=== PATIENT | female | born 1940 | race Caucasian/White ===

== ENCOUNTER 2017-04-25 20:18 | Inpatient (IN) ==
[2017-04-25] MEDS ORDERED: NS 1,000 ML IV ONE ×2 (20:26→22:29)
[2017-04-25] MEDS ORDERED: MORPHINE SULFATE 2 MG SYRINGE IVP ONE (20:26)
[2017-04-25] MEDS ORDERED: ONDANSETRON 4 MG/2 ML INJECTION IVP ONE (20:26)
[2017-04-25] MEDS ORDERED: ENOXAPARIN 80 MG/0.8 ML INJECTION SQ ONE (20:26)
--- NOTE | 2017-04-25 21:08 | Emergency Department Report ---
Fall HPI - General Chief Complaint: Fall Stated Complaint: Fall Time Seen by Provider: 04/25/17 20:24 Source: patient, EMS Mode of arrival: EMS Limitations: no limitations - History of Present Illness HPI Narrative: 76yo woman is presented to the ER by EMS following a fall. Pt was preparing to take a bath 3 days ago, when she fell into the tub. Pt was found by family today. EMS was called and came to evaluate pt. Pt c/o right hip pain and left shoulder pain. MD complaint: fall Onset (ago): day(s) (3) Fall from: standing Fall witnessed: no Place fall occurred: home Loss of consciousness: unsure Prolonged down time: yes Symptoms prior to fall: none Context: tripped/slipped Location of injury: back, pelvis Severity: mild Severity scale (1-10): 3 Quality: aching Associated symptoms (after fall): denies - Related Data Home Medications Medication Instructions Recorded Confirmed Gabapentin [Neurontin] 1 cap PO HS #0 10/08/10 04/25/17 Levothyroxine Tab [Synthroid] 1 tab PO DAILY #0 10/08/10 04/25/17 Tramadol HCl [Ultram] 50 mg PO PRN #0 03/17/12 04/25/17 Topiramate [Topamax] 100 mg PO BID #0 06/12/12 04/25/17 Temazepam 30 mg PO HS #0 06/21/12 04/25/17 Aspirin 325 mg PO DAILY #0 09/21/12 04/25/17 Nitroglycerin [Nitrostat] 0.4 mg SL PRN #0 09/21/12 04/25/17 Loratadine [Claritin] 10 mg PO DAILY #0 05/24/14 04/25/17 Simvastatin [Zocor] 10 mg PO HS #0 tab 05/24/14 04/25/17 Carvedilol 1 tab PO BID #60 01/22/15 04/25/17 Cyclobenzaprine HCl 1 tab PO BID PRN #0 tab 01/22/15 04/25/17 Ondansetron [Zofran Odt] 1 tab PO Q6H PRN #30 01/22/15 04/25/17 Amitriptyline [Elavil] 1 tab PO HS 04/25/17 04/25/17 Calcium Carbonate/Vitamin D3 600 mg PO DAILY 04/25/17 04/25/17 [Calcium 600 + Vit D Tablet] Cholecalciferol [Vit. D-3] 1 tab PO DAILY 04/25/17 04/25/17 Docusate Sodium [Colace] 1 cap PO DAILY 04/25/17 04/25/17 Magnesium Oxide [Magox 400] 400 mg PO DAILY 04/25/17 04/25/17 Omeprazole [Prilosec] 1 cap PO ACB 04/25/17 04/25/17 Ondansetron Odt 4 mg PO PRN PRN 04/25/17 04/25/17 Prochlorperazine Tab [Compazine] 5 mg PO Q6HR 04/25/17 04/25/17 Rivaroxaban [Xarelto] 20 mg PO WS 04/25/17 04/25/17 Allergies Allergy/AdvReac Type Severity Reaction Status Date / Time Sulfa (Sulfonamide Allergy Intermediate HIVES Verified 04/25/17 20:25 Antibiotics) lansoprazole Allergy Unknown Verified 04/25/17 20:25 metoclopramide HCl Allergy Unknown dizzy and Uncoded 04/25/17 20:25 disoriented Review of Systems All systems: reviewed and negative except as stated Musculoskeletal: Reports: as per HPI, back pain, arthralgia PFSH Patient Stated Medical History Cerebrovascular Accident Yes Cardiac Arrhythmia Yes Hypertension Yes Gastroesophageal Reflux Yes Disease Hx Incontinence Yes Depression Yes - Social History Smoking status: Never smoker Physical Exam - Limitations Limitations: no limitations - General General appearance: alert, in no apparent distress - Head Head exam: atraumatic, normocephalic, normal inspection - Eye Eye exam: Present: normal appearance, PERRL, EOMI. Absent: scleral icterus - ENT ENT exam: Present: normal exam, normal oropharynx, mucous membranes moist, normal external ear exam - Neck Neck exam: Present: normal inspection, full ROM, trachea midline. Absent: tenderness, lymphadenopathy - Chest Chest inspection: Present: normal inspection, symmetric chest wall rise. Absent : tenderness, rash - Respiratory Respiratory exam: Present: normal lung sounds bilaterally. Absent: respiratory distress, wheezes, prolonged expiratory phase - Cardiovascular Cardiovascular exam: Present: regular rate, normal rhythm, normal heart sounds, +S1, +S2. Absent: systolic murmur, diastolic murmur, +S3, +S4 - Abdominal Exam Abdominal exam: Present: soft, normal bowel sounds. Absent: distention, tenderness, guarding, rebound, psoas sign, obturator sign, Person's sign, hernia - Skin Skin exam: Present: warm, dry, intact, other (Ecchymosis over left post shoulder ). Absent: rash - Neurological Exam Neurological exam: Present: alert, oriented X3, CN II-XII intact - Psychiatric Psychiatric exam: Present: normal affect, normal mood Course - Consultations Consultation #1: Darci Telemed: Time: 23:21 Vital Signs Temperature 98.1 F 04/25/17 20:18 Pulse Rate 98 04/25/17 20:18 Respiratory Rate 20 04/25/17 20:18 Blood Pressure 138/84 04/25/17 20:18 Pulse Oximetry 97 04/25/17 20:18 Temperature 98.1 F 04/25/17 20:18 Pulse Rate 101 H 04/26/17 00:45 Respiratory Rate 18 04/26/17 00:45 Blood Pressure 150/79 H 04/26/17 00:45 Pulse Oximetry 94 04/26/17 00:45 Fall - MDM Narrative Medical decision making narrative: Pt is s/p fall and prolonged period (>48hrs) confined in a tub. She is still very weak, mildly dehydrated, and with a UTI. After discussion with pt and family, will contact hospitalist for observation admission with Social Work consult in the AM to determine whether pt can safely return to her home with outpt help or whether she will need rehab/move to assisted living. Pt voiced understanding of dx, prognosis, tx, and f/u need. - Differential Diagnosis Likely: syncope, dislocation of shoulder region, compression fracture, concussion with loss of consciousness, concussion without loss of consciousness - Medical Records Attestation: I reviewed the patient's medical records. - Lab Data Attestation: I reviewed the patient's lab results. Result diagrams: 04/25/17 21:19 04/26/17 03:41 Lab Results 04/25/17 04/25/17 04/25/17 Range/Units 21:19 21:19 22:58 WBC 11.8 H (4.5-11.0) T/MM3 RBC 4.21 (4.00-5.20) M/MM3 Hgb 13.2 (12-16) GM/DL Hct 39.6 (36-46) % MCV 94.1 (80-100) UM3 MCH 31.4 (26-34) UUG MCHC 33.3 (31-37) GM/DL RDW Std Deviation 43.0 (36.9-50.2) FL Plt Count 134 (130-400) T/MM3 MPV 11.1 (9.4-12.4) UM3 Immature Gran % (Auto) 0.3 (0.0-0.5) % Neut % (Auto) 73.7 H (33-66) % Lymph % (Auto) 15.5 L (23-45) % [place] % (Auto) 9.9 H (0-9.0) % Eos % (Auto) 0.3 (0-4) % Baso % (Auto) 0.3 (0-2) % Neut # 8.7 H (1.8-7.7) T/MM3 Lymph # 1.8 (1-4.8) T/MM3 [place] # 1.2 H (0-0.8) T/MM3 Eos # 0.0 (0-0.5) T/MM3 Baso # 0.0 (0-0.2) T/MM3 Abs Immat Gran (auto) 0.03 (0.00-0.03) T/MM3 Turbidity < 20 (0-20) Sodium 148 H (134-144) MEQ/L Potassium 3.8 (3.6-5) MEQ/L Chloride 114 H (98-107) MEQ/L Carbon Dioxide 17 L (22-30) MEQ/L Anion Gap 17 H (5-15) MEQ/L BUN 14.0 (7-17) MG/DL Creatinine 0.9 (0.7-1.2) MG/DL GFR Calculation 61 BUN/Creatinine Ratio 16 (6-26) RATIO Glucose 148 H (65-110) MG/DL Calculated Osmolality 288 H (261-280) MOSM/KG Calcium 10.1 (8.4-10.2) MG/DL Total Bilirubin 1.40 H (0.20-1.30) MG/DL Icterus Index < 2 (0-7) AST 73 H (14-36) U/L ALT 45 (9-52) U/L Alkaline Phosphatase 85 (38-126) U/L Creatine Kinase 1387 H (30-135) U/L Total Protein 8.1 (6.3-8.2) G/DL Albumin 4.6 (3.5-5.0) G/DL Globulin 3.5 (2.4-3.6) G/DL Albumin/Globulin Ratio 1.3 (1.1-2.2) RATIO Plasma Lactate 2.6 H (0.6-2.2) MMOL/L Specimen Hemolysis < 15 (0-25) Ur Collection Type Urine, clean catch Urine Color Yellow (YELLOW) Urine Clarity Cloudy Urine pH 6.0 (5.0-8.0) Ur Specific [place] 1.025 (1.015-1.025) Urine Protein 1+ A (NEGATIVE) Urine Glucose (UA) Negative (NEGATIVE) Urine Ketones 2+ A (NEGATIVE) Urine Occult Blood 3+ A (NEGATIVE) Urine Nitrate Positive A (NEGATIVE) Urine Bilirubin Negative (NEGATIVE) Urine Urobilinogen 1.0 (NORMAL) EU/DL Ur Leukocyte Esterase 1+ A (NEGATIVE) Urine RBC 10-20 H (0-3) /HPF Urine WBC 30-50 H (0-5) /HPF Urine Bacteria 4+ H (NEGATIVE) Ur Culture Indicated? Cult reflexed &setup - Radiology Data Attestation: I reviewed the patient's radiology results. Right Hip: No apparent bony pathology CXR: Mildly increased right perihilar opacities. Left shoulder: No apparent fracture or dislocation. - EKG Data EKG #1 EKG attestation: Yes: I reviewed and interpreted this EKG. EKG shows normal: sinus rhythm, axis, intervals, QRS complexes Rate: normal Interpretation: nonspecific ST-T wave changes Disposition Clinical Impression: Fall Qualifiers: Encounter type: initial encounter Qualified Code(s): W19.XXXA - Unspecified fall, initial encounter Disposition: 02 To [facility] [place] Acute Care Condition: Stable Time of Disposition: 00:00 - Seen By: physician
[2017-04-25] MEDS ORDERED: CEFTRIAXONE (ER USE ONLY) 1 GM in NS 100 ML IV ONE (23:19)
[2017-04-26] MEDS ORDERED: NITROGLYCERIN 0.4 MG SUBLINGUAL TABLET SL SCH (00:38)
[2017-04-26] MEDS ORDERED: ONDANSETRON ODT 4 MG TABLET SL PRN (00:38)
[2017-04-26] MEDS ORDERED: NS 1,000 ML IV SCH (00:38)
[2017-04-26] MEDS ORDERED: ONDANSETRON 4 MG/2 ML INJECTION IVP PRN (00:38)
[2017-04-26 00:43] VITALS: BMI 27.9
[2017-04-26] MEDS: SALINE FLUSH 10ml SYRINGE IVF PRN (01:04)
--- NOTE | 2017-04-26 02:17 | History & Physical Report ---
History of Present Illness Date: 04/26/17 Chief complaint: Fall, Weakness HPI: Bonita is a pleasant 76-year-old white female who states that she fell in the bathtub on Tuesday night. She does not believe she lost consciousness, she says she slipped. Unfortunately, she was unable to get herself out of the time of, and remained there until late Tuesday afternoon when her neighbor came over for a welfare check. She states that her son and [id number] came by at about the same time. She was brought by EMS to the emergency department, where her workup was remarkably benign. She did show evidence of a urinary tract infection, and her CK was approximately 1400. She was given Rocephin, IV fluids, and consideration was made for discharge to return home, however she lost her footing and fell getting up from the commode in the emergency department. She will be placed in observation status, for additional fluids, and for evaluation by physical therapy and Case management in the morning. Review of Systems - Constitutional Constitutional: Present: weakness. Absent: anorexia, chills - EENMT Eyes: Absent: change in vision - Respiratory Respiratory: Absent: cough, dyspnea - Gastrointestinal Gastrointestinal: Absent: abdominal pain, diarrhea - Musculoskeletal Musculoskeletal: Present: stiffness ( She complained of pain in her left shoulder and right hip, both were evaluated in the emergency department with no acute injury apparent) - Neurological Neurological: Present: frequent falls. Absent: abnormal gait, loss of vision [facility] Patient Stated Medical History Cerebrovascular Accident Yes Cataracts Yes: 2015 Cardiac Arrhythmia Yes Hypertension Yes Gastroesophageal Reflux Yes Disease Hx Incontinence Yes Osteoarthritis Yes Depression Yes she takes Xarelto for atrial fibrillation, paroxysmal she also endorses a history of hypothyroidism Family History: she states that her mother, father, and brother all have from complications of heart disease/ congestive heart failure - Social History Smoking status: Never smoker Medications Home Medications Medication Instructions Recorded Confirmed Type Gabapentin [Neurontin] 1 cap PO HS #0 10/08/10 04/25/17 History Levothyroxine Tab [Synthroid] 1 tab PO DAILY #0 10/08/10 04/25/17 History Tramadol HCl [Ultram] 50 mg PO PRN #0 03/17/12 04/25/17 History Topiramate [Topamax] 100 mg PO BID #0 06/12/12 04/25/17 History Temazepam 30 mg PO HS #0 10/03/12 08/07/17 History Aspirin 325 mg PO DAILY #0 09/21/12 04/25/17 History Nitroglycerin [Nitrostat] 0.4 mg SL PRN #0 09/21/12 04/25/17 History Loratadine [Claritin] 10 mg PO DAILY #0 05/24/14 04/25/17 History Simvastatin [Zocor] 10 mg PO HS #0 tab 05/24/14 04/25/17 History Carvedilol 1 tab PO BID #60 01/22/15 04/25/17 History Cyclobenzaprine HCl 1 tab PO BID PRN #0 tab 01/22/15 04/25/17 History Ondansetron [Zofran Odt] 1 tab PO Q6H PRN #30 01/22/15 04/25/17 History Amitriptyline [Elavil] 1 tab PO HS 04/25/17 04/25/17 History Calcium Carbonate/Vitamin D3 600 mg PO DAILY 04/25/17 04/25/17 History [Calcium 600 + Vit D Tablet] Cholecalciferol [Vit. D-3] 1 tab PO DAILY 04/25/17 04/25/17 History Docusate Sodium [Colace] 1 cap PO DAILY 04/25/17 04/25/17 History Magnesium Oxide [Magox 400] 400 mg PO DAILY 04/25/17 04/25/17 History Omeprazole [Prilosec] 1 cap PO ACB 04/25/17 04/25/17 History Ondansetron Odt 4 mg PO PRN PRN 04/25/17 04/25/17 History Prochlorperazine Tab [Compazine] 5 mg PO Q6HR 04/25/17 04/25/17 History Rivaroxaban [Xarelto] 20 mg PO WS 04/25/17 04/25/17 History Allergies Allergy/AdvReac Type Severity Reaction Status Date / Time Sulfa (Sulfonamide Allergy Intermediate HIVES Verified 04/25/17 20:25 Antibiotics) lansoprazole Allergy Unknown Verified 04/25/17 20:25 metoclopramide HCl Allergy Unknown dizzy and Uncoded 04/25/17 20:25 disoriented Exam Vital Signs: Temperature 98.1 F 04/25/17 20:18 Pulse Rate 101 H 04/26/17 00:45 Respiratory Rate 18 04/26/17 00:45 Blood Pressure 150/79 H 04/26/17 00:45 Pulse Oximetry 94 04/26/17 00:45 Oxygen Delivery Method Room Air Height: 5 ft 7 in Weight: 80.9 kg Body Mass Index: 27.9 - Constitutional Present: no acute distress, average body habitus, cooperative - Routine HEENT Exam Head: Present: normocephalic, atraumatic Eye: Present: EOMI, PERRL ENT: Present: mucous membranes moist - Routine Neck Exam Present: supple, trachea midline. Absent: JVD - Routine Respiratory Exam Present: CTA bilaterally. Absent: accessory muscle use, respiratory distress - Routine Cardiovascular Exam Present: RRR, no murmur - Routine Abdominal Exam Present: soft, normoactive bowel sounds, non distended, non tender - Routine Extremities Exam Absent: cyanosis, clubbing, edema - Routine Neurological Exam Present: alert, oriented X3, CN II-XII intact, moving all extremities, normal speech. Absent: tremors - Routine Psychiatric Exam Present: normal affect, normal thought process Results - Labs CBC & Chem 7: 04/25/17 21:19 04/25/17 21:19 Assessment and Plan (1) UTI (urinary tract infection) Current visit: Yes Status: Acute she has begun on empiric intravenous Rocephin, and will follow urine culture. Physical therapy evaluation and treatment has been ordered for tomorrow morning. We will continue gentle IV fluids overnight, And recheck labs in the morning as she did have an elevated lactate, and a mild metabolic acidosis, though she does not otherwise appear septic. We will provide further symptomatic, supportive, and diagnostic cares as her current workup, or changes in her clinical scenario indicate. Plan of care was discussed with the patient at the time of my evaluation she expressed understanding and a desire to proceed. 04/26/17 02:25 DVT Prophylaxis: SCD's Resuscitation Status: Full Code Assessment and Plan: Her other problems include paroxysmal atrial fibrillation, for which she is continues on Xarelto, hypothyroidism for which she continues on Synthroid, and a history of cerebrovascular disease. Sepsis Assessment - Evaluation Sepsis screening result: No Definite Risk Hospital Course Summary Disclaimer: The visit summary below is not to be considered part of the above Progress Note.
[2017-04-26] MEDS: OMEPRAZOLE 20 MG CAPSULE PO SCH (05:56)
[2017-04-26] MEDS: LEVOTHYROXINE 75 MCG TABLET PO SCH (07:03)
--- NOTE | 2017-04-26 08:12 | XRay Report ---
Indication: fall XR hip RT min 2V: Comparison: None Technique: AP and frog-leg views Findings: Patient showed no acute bony abnormality. Joint spaces well-preserved. No suggestion of fracture, dislocation, lytic or blastic lesion noted. Impression: Unremarkable two-view hip. .
[2017-04-26] MEDS ORDERED: DOCUSATE SODIUM 100 MG CAPSULE PO SCH (09:00)
--- NOTE | 2017-04-26 09:05 | XRay Report ---
Indication: Fall XR chest 1V: Comparison: 06/10/2013 Technique: AP supine portable chest Findings: Patient shows heart size within acceptable limits. Slight elevation of the left hemidiaphragm is appreciated although not dramatically changed over the old study. Similar chronic lung changes are present. No new bony abnormality appreciated. Impression: Patient demonstrates overall similar cardiopulmonary appearance with no significant cardiomegaly and stable mild chronic basilar pulmonary changes. .
[2017-04-26] MEDS: CARVEDILOL 6.25 MG TABLET PO SCH ×2 (09:29→17:37)
[2017-04-26] MEDS: ASPIRIN 325 MG TABLET PO SCH ×3 (09:29→09:30)
[2017-04-26] MEDS: MAGNESIUM OXIDE 400 MG TABLET PO SCH (09:29)
[2017-04-26] MEDS: 1/2 NS with KCL 20mEq 1,000 ML IV SCH ×2 (09:30→21:16)
[2017-04-26] MEDS: CEFTRIAXONE 1 G in NS 100 ML IV SCH (09:30)
[2017-04-26] MEDS: TOPIRAMATE 100 MG TABLET PO SCH ×2 (09:30→22:02)
--- NOTE | 2017-04-26 09:40 | XRay Report ---
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 No acute fractures are identified. Impression: Slight progression in the amount of degeneration in the glenohumeral joint without acute fracture or dislocation. .
[2017-04-26] MEDS ORDERED: DOCUSATE SODIUM 100 MG CAPSULE PO PRN (14:07)
[2017-04-26] MEDS: ACETAMINOPHEN 325 MG TABLET PO PRN (16:00)
[2017-04-26] MEDS: RIVAROXABAN 20 MG TABLET PO SCH (17:37)
[2017-04-26] MEDS: SIMVASTATIN 10 MG TABLET PO SCH (22:02)
[2017-04-26] MEDS: GABAPENTIN 300 MG CAPSULE PO SCH (22:02)
[2017-04-26] MEDS: AMITRIPTYLINE 25 MG TABLET PO SCH (22:03)
[2017-04-26] MEDS: TEMAZEPAM 30 MG CAPSULE PO SCH (22:03)
[2017-04-27] MEDS: OMEPRAZOLE 20 MG CAPSULE PO SCH (06:51)
[2017-04-27] MEDS: LEVOTHYROXINE 75 MCG TABLET PO SCH (06:51)
[2017-04-27] MEDS: 1/2 NS with KCL 20mEq 1,000 ML IV SCH ×2 (07:30→18:10)
[2017-04-27] MEDS: CARVEDILOL 6.25 MG TABLET PO SCH ×2 (07:30→17:23)
[2017-04-27] MEDS: ACETAMINOPHEN 325 MG TABLET PO PRN ×2 (07:30→20:31)
[2017-04-27] MEDS: CEFTRIAXONE 1 G in NS 100 ML IV SCH (09:21)
[2017-04-27] MEDS: TOPIRAMATE 100 MG TABLET PO SCH ×2 (09:22→20:31)
[2017-04-27] MEDS: MAGNESIUM OXIDE 400 MG TABLET PO SCH (09:22)
[2017-04-27] MEDS ORDERED: PNEUMOCOCCAL VAC ADMIN CHARGE INJ ONE (13:00)
[2017-04-27] MEDS ORDERED: PNEUMOCOCCAL 13 VACCINE 0.5ml INJECTION IM ONE (13:01)
--- NOTE | 2017-04-27 13:24 | Internal Med Progress Note ---
Internal Medicine Subjective There was a pleasant 76-year-old white female patient. She was seen and examined today in her room. She suffered a fall at home secondary weakness most likely the result of a urinary tract infection from Escherichia coli. She remained in her bathtub for approximately 2 days before she was found by neighbor. Upon admission she had metabolic acidosis secondary to rhabdomyolysis. She is on antibiotics as well as IV fluid hydration and is progressing nicely. Her cognition is improved and she's walked at least twice today. Exam Vital Signs: Temperature 97.0 F 04/27/17 07:26 Pulse Rate 74 04/27/17 07:26 Respiratory Rate 18 04/27/17 07:26 Blood Pressure 135/69 04/27/17 07:26 Pulse Oximetry 97 04/27/17 07:26 Oxygen Delivery Method Room Air Telemetry Rhythm: Sinus Rhythm Height: 5 ft 7 in Weight: 83.6 kg Body Mass Index: 27.9 - Constitutional Present: no acute distress - Routine HEENT Exam Head: Present: normocephalic, scalp tenderness (across the left occipital area) Eye: Present: EOMI, PERRL, conjunctivae pink. Absent: conjunctival icterus, scleral injection ENT: Present: mucous membranes moist, oropharynx clear, nares patent - Routine Neck Exam Present: supple, full ROM. Absent: JVD, lymphadenopathy, thyromegaly, tenderness - Routine Chest/Breast/Axilla Exam Chest wall: Absent: tenderness Axillae: Absent: lymphadenopathy - Routine Respiratory Exam Present: CTA bilaterally. Absent: accessory muscle use, dyspnea, rales, respiratory distress, rhonchi, stridor, wheezes - Routine Cardiovascular Exam Present: RRR. Absent: S3, S4 - Routine Abdominal Exam Present: soft, non distended, non tender. Absent: rebound, guarding, rigid - Routine Extremities Exam Present: tenderness (with ecchymoses along the left shoulder). Absent: cyanosis , clubbing, edema - Routine Skin Exam Present: intact, ecchymosis (left shoulder). Absent: erythema, mottling, petechiae, urticaria, jaundice - Routine Neurological Exam Present: alert, oriented X3, moving all extremities - Routine Psychiatric Exam Present: normal affect, cooperative, good insight, good judgment. Absent: depressed, anxious Internal Medicine Results - Labs CBC & Chem 7: 04/27/17 05:06 04/27/17 05:06 Labs: Short CBC 04/27/17 Range/Units 05:06 WBC 7.3 (4.5-11.0) T/MM3 Hgb 11.3 L D (12-16) GM/DL Hct 34.9 L D (36-46) % Plt Count 124 L (130-400) T/MM3 BMP 04/27/17 05:06 Sodium 142 D Potassium 3.3 L Chloride 117 H Carbon Dioxide 18 L BUN 6.0 L D Creatinine 0.7 Glucose 97 Calcium 8.0 L Liver Function 04/27/17 Range/Units 05:06 Total Bilirubin 0.70 (0.20-1.30) MG/DL AST 45 H (14-36) U/L ALT 42 (9-52) U/L Alkaline Phosphatase 44 D (38-126) U/L Albumin 3.2 L (3.5-5.0) G/DL Progress Note-A&P (1) Fall Status: Acute Current Visit: Yes (2) UTI (urinary tract infection) Status: Acute Current Visit: Yes (3) Rhabdomyolysis Status: Acute Current Visit: Yes (4) Metabolic acidosis with increased anion gap and accumulation of organic acids Status: Acute Current Visit: Yes - Time Spent With Patient Total time spent is greater than 50% in coordination of care (as documented) at patient's floor/unit and/or counseling patient: 25 - 35 minutes Sepsis Assessment - Evaluation Sepsis screening result: No Definite Risk Hospital Course Summary Disclaimer: The visit summary below is not to be considered part of the above Progress Note.
[2017-04-27] MEDS: RIVAROXABAN 20 MG TABLET PO SCH (17:23)
[2017-04-27] MEDS: SALINE FLUSH 10ml SYRINGE IVF PRN (19:53)
[2017-04-27] MEDS: TEMAZEPAM 30 MG CAPSULE PO SCH (22:09)
[2017-04-27] MEDS: SIMVASTATIN 10 MG TABLET PO SCH (22:10)
[2017-04-27] MEDS: AMITRIPTYLINE 25 MG TABLET PO SCH (22:10)
[2017-04-27] MEDS: GABAPENTIN 300 MG CAPSULE PO SCH (22:10)
[2017-04-27 23:49] VITALS: RESP 18
[2017-04-28] MEDS ORDERED: FALL RISK - PHARMACY CONSULT MC PRN (01:48)
[2017-04-28] MEDS: ACETAMINOPHEN 325 MG TABLET PO PRN ×2 (02:22→08:39)
[2017-04-28] MEDS: 1/2 NS with KCL 20mEq 1,000 ML IV SCH (04:29)
[2017-04-28] MEDS: OMEPRAZOLE 20 MG CAPSULE PO SCH (06:50)
[2017-04-28] MEDS: LEVOTHYROXINE 75 MCG TABLET PO SCH (06:50)
[2017-04-28 07:32] VITALS: BP 136/81; TEMP 98.7; O2SAT 96
[2017-04-28] MEDS: CARVEDILOL 6.25 MG TABLET PO SCH (08:39)
[2017-04-28] MEDS: MAGNESIUM OXIDE 400 MG TABLET PO SCH (08:39)
[2017-04-28] MEDS: TOPIRAMATE 100 MG TABLET PO SCH (08:39)
[2017-04-28] MEDS: CEFTRIAXONE 1 G in NS 100 ML IV SCH (08:41)
[2017-04-28 11:11] VITALS: PULSE 66
--- NOTE | 2017-04-28 13:52 | Discharge Summary ---
Discharge Information Date of admission: 04/26/17 13:49 Anticipated date of discharge: 04/28/17 Attending Physician: Santy Díaz DO Primary care physician: Santy Díaz DO - Discharge Diagnosis Discharge Diagnosis: Urinary tract infection from Escherichia coli which resulted in sepsis and weakness. This caused her to collapse into the bathtub where she remained for 2 days causing rhabdomyolysis - Laboratory Labs: 04/28/17 09:15 04/28/17 09:15 History of Present Illness HPI: Bonita is a pleasant 76-year-old white female who states that she fell in the bathtub on Tuesday night. She does not believe she lost consciousness, she says she slipped. Unfortunately, she was unable to get herself out of the time of, and remained there until late Tuesday afternoon when her neighbor came over for a welfare check. She states that her son and [id number] came by at about the same time. She was brought by EMS to the emergency department, where her workup was remarkably benign. She did show evidence of a urinary tract infection, and her CK was approximately 1400. She was given Rocephin, IV fluids, and consideration was made for discharge to return home, however she lost her footing and fell getting up from the commode in the emergency department. She will be placed in observation status, for additional fluids, and for evaluation by physical therapy and Case management in the morning. Hospital Course This is a general summary of the patient's hospital course. For more details refer to the complete medical record. Time spent with patient: 25 - 35 minutes DVT Prophylaxis: SCD's, TELMA [facility] Prophylaxis: Protonix Discharge Plan - Med Rec/Dispo Prescriptions: New Cefdinir 300 mg PO 1-2XD 7 Days #14 capsule Continue Gabapentin [Neurontin] 1 cap PO HS #0 Topiramate [Topamax] 100 mg PO BID #0 Loratadine [Claritin] 10 mg PO DAILY #0 Simvastatin [Zocor] 10 mg PO HS #0 tab Carvedilol 1 tab PO BID #60 Magnesium Oxide [Magox 400] 400 mg PO DAILY Rivaroxaban [Xarelto] 20 mg PO WS Prochlorperazine Tab [Compazine] 5 mg PO Q6HR Amitriptyline [Elavil] 1 tab PO HS Cholecalciferol [Vit. D-3] 1 tab PO DAILY Ondansetron Odt 4 mg PO PRN PRN PRN Reason: Nausea Levothyroxine Tab [Synthroid] 1 tab PO DAILY #0 Tramadol HCl [Ultram] 50 mg PO PRN #0 Temazepam 30 mg PO HS #0 Nitroglycerin [Nitrostat] 0.4 mg SL PRN #0 Aspirin 325 mg PO DAILY #0 Ondansetron [Zofran Odt] 1 tab PO Q6H PRN #30 PRN Reason: NAUSEA Cyclobenzaprine HCl 1 tab PO BID PRN #0 tab PRN Reason: PRN ORDERS Omeprazole [Prilosec] 1 cap PO ACB Docusate Sodium [Colace] 1 cap PO DAILY Calcium Carbonate/Vitamin D3 [Calcium 600 + Vit D Tablet] 600 mg PO DAILY - Disposition 01 Discharged Home, Self-Care
== END 2017-04-28 14:45 | disposition home or self-care (01) | DRG 690 ==
LOC: MED 20:18 → ED 20:18 → MED 04-26 00:40
PROVIDERS: ADMIT Internal Medicine; ATTEND Internal Medicine